=== PATIENT | male | born 1985 | race Caucasian/White ===

== ENCOUNTER 2016-12-28 09:26 | Emergency (ER) | payer OTHER ==
[~2016-12-28] VITALS: Ht 182.9 cm; Wt 100.7 kg
[2016-12-28 09:31] VITALS: BP 158/81
[2016-12-28] MEDS ORDERED: KETOROLAC 30 MG/1 ML ONE (10:29)
[2016-12-28] MEDS ORDERED: DIAZEPAM 5 MG TABLET ONE (10:29)
[2016-12-28] MEDS ORDERED: DIAZEPAM 5 MG TABLET PO ONE (10:30)
[2016-12-28] MEDS ORDERED: KETOROLAC 30 MG/1 ML IM ONE (10:30)
== END 2016-12-28 11:22 | disposition home or self-care (01) ==
LOC: ED 11:16
DX: M54.32 Sciatica, left side (principal)
CPT/HCPCS: 96372; 99283; J1885

== ENCOUNTER → 2017-04-27 | Outpatient (CLI) | payer OTHER | END | disposition home or self-care (01) | LOC: CFH 12:23 | PROVIDERS: ATTEND Physician Assistant | DX: M51.37 Other intervertebral disc degeneration, lumbosacral region (principal) | CPT/HCPCS: 72110 ==